=== PATIENT | male | born 1995 | race Caucasian/White ===

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

== ENCOUNTER 2018-04-25 14:21 | Emergency (ER) | payer MEDICAID | END 2018-04-25 15:11 | disposition left against medical advice (07) | LOC: ER 14:21 | DX: Z53.21 Procedure and treatment not carried out due to patient leaving prior to being seen by health care provider (principal) ==

== ENCOUNTER 2019-01-06 21:48 | Emergency (ER) | payer MEDICAID ==
[~2019-01-06] VITALS: Ht 170.2 cm; Wt 66.0 kg
[2019-01-07] MEDS ORDERED: IBUPROFEN 600MG TABLET PO SCH (00:45)
[2019-01-07] MEDS ORDERED: LIDOCAINE HCL/PF 1% 10 MG/ML 5ML VIAL IJ SCH (00:45)
[2019-01-07] MEDS ORDERED: BACITRACIN ZINC OINT UDPKT TOP SCH (00:55)
[2019-01-07 01:15] VITALS: BP 128/79
== END 2019-01-07 03:06 | disposition home or self-care (01) ==
LOC: ER 21:48
DX: L02.412 Cutaneous abscess of left axilla (principal); F14.10 Cocaine abuse, uncomplicated; F12.10 Cannabis abuse, uncomplicated; F15.10 Other stimulant abuse, uncomplicated
CPT/HCPCS: 10060; 99283; J3490; Z7610

== ENCOUNTER 2020-06-13 18:29 | Emergency (ER) | payer MEDICAID ==
[~2020-06-13] VITALS: Ht 170.2 cm; Wt 64.0 kg
[2020-06-13] MEDS ORDERED: TETANUS, DIPHTHERIA, PERTUSSIS VAC/PF 0.5ML (>7YR OLD) IM ONE (19:00)
[2020-06-13] MEDS ORDERED: LIDOCAINE HCL 1% 20ML VIAL (Pyxis) INJ INFIL ONE (19:30)
[2020-06-13 21:26] VITALS: BP 126/77
== END 2020-06-13 21:29 | disposition home or self-care (01) ==
LOC: ER 18:29
DX: S61.011A Laceration without foreign body of right thumb without damage to nail, initial encounter (principal); W26.8XXA Contact with other sharp object(s), not elsewhere classified, initial encounter; Y93.89 Activity, other specified; Y92.89 Other specified places as the place of occurrence of the external cause; Y99.8 Other external cause status; F14.10 Cocaine abuse, uncomplicated; F12.10 Cannabis abuse, uncomplicated; F15.10 Other stimulant abuse, uncomplicated
CPT/HCPCS: 12001; 90471; 90715; 99283; A4217; J3490; Z7610

== ENCOUNTER 2022-03-29 02:44 | Emergency (ER) | payer MEDICAID ==
[~2022-03-29] VITALS: Ht 170.2 cm; Wt 70.0 kg
[2022-03-29 03:21] VITALS: BP 141/90
== END 2022-03-29 04:53 | disposition left against medical advice (07) ==
LOC: ER 02:44
DX: Z53.21 Procedure and treatment not carried out due to patient leaving prior to being seen by health care provider (principal)